=== PATIENT | female | born 1955 | race Caucasian/White ===

== ENCOUNTER → 2019-05-19 | Outpatient (REF) | payer BC ==
[~2019-05-19] MED LIST: AMBI10TA PO; INVO100T PO; LOSA50TA88 PO; METF10004 PO; NEXI20CA PO
[2019-05-19 13:40] LABS: APPEARANCE, URINE MANUAL CLOUDY (CLEAR); COLOR, URINE MANUAL ORANGE (YELLOW); PROTEIN, URINE MANUAL OBSCURED mg/dL (NEGATIVE)
[2019-05-19 13:41] LABS: BILIRUBIN, URINE MANUAL OBSCURED (NEGATIVE); BLOOD URINE MANUAL POSITIVE (NEGATIVE); GLUCOSE, URINE (UA) MANUAL 4+(1000 MG/DL) mg/dL (NEGATIVE); KETONE, URINE MANUAL OBSCURED mg/dL (NEGATIVE); LEUKOCYTE ESTERASE, URINE MAN OBSCURED (NEGATIVE); NITRITE, URINE MANUAL OBSCURED (NEGATIVE); UROBILINOGEN, URINE MANUAL OBSCURED mg/dl (NORMAL)
[2019-05-19 13:45] LABS: RBC, URINE TNTC /hpf (0-3); WBC, URINE 15-20 /hpf (0-3)
[2019-05-19 13:46] LABS: BACTERIA, URINE SMALL AMOUNT; HYALINE CAST, URINE NONE SEEN /lpf (0-1); SQUAMOUS EPITHELIAL CELL URINE SMALL AMOUNT /hpf (SMALL AMT)
== END ==
LOC: M SMT 13:26
PROVIDERS: ATTEND Nurse Practitioner Women's Health
DX: Z01.818 Encounter for other preprocedural examination (principal); N13.2 Hydronephrosis with renal and ureteral calculous obstruction

== ENCOUNTER 2019-05-22 07:42 | Day surgery (SDC) | payer BC ==
[~2019-05-22] VITALS: Ht 165.1 cm; Wt 94.3 kg
[~2019-05-22 07:42] MED LIST changes: +LR 1,000 ML IV SCH; +LevoFLOXacin IV 500 MG in IV 1 EA IV ONE
[2019-05-22 08:21] LABS: INR 1.07; PROTHROMBIN TIME 13.6 SECONDS (11.8-14.0)
[2019-05-22] MEDS ORDERED: MIDAZOLAM INJ 2 MG/2 ML VIAL (J2250) As Ordered ONE (08:25)
[2019-05-22] MEDS ORDERED: PROPOFOL 200 MG/20 ML VIAL As Ordered ONE (08:25)
[2019-05-22] MEDS ORDERED: LIDOCAINE 2% INJ 100 MG/5 ML SDV (FOR ANES.) As Ordered ONE (08:25)
[2019-05-22] MEDS ORDERED: ROCURONIUM BROMIDE 50 MG/5 ML VIAL As Ordered ONE (08:25)
[2019-05-22] MEDS ORDERED: fentaNYL 100 MCG/2 ML INJECTION (J3010) As Ordered ONE ×2 (08:25→10:39)
[2019-05-22] MEDS ORDERED: CONRAY-60 60% 50ML VIAL (Q9961) As Ordered ONE (09:14)
[2019-05-22] MEDS ORDERED: KETOROLAC 60 MG/2 ML VIAL (J1885) As Ordered ONE (09:44)
[2019-05-22] MEDS ORDERED: ONDANSETRON 4MG/2ML VIAL (J2405) As Ordered ONE (09:44)
[2019-05-22] MEDS ORDERED: dexameTHASONE 4 MG/ML 1ML VIAL (J1100) As Ordered ONE (09:44)
[2019-05-22] MEDS ORDERED: ACETAMINOPHEN 1000MG 100ML IV BTL (OFIRMEV) (J0131 PER 10MG) As Ordered ONE (10:10)
--- NOTE | 2019-05-22 11:17 | REP ---
Retrograde pyelogram: History: Stent placement. 45 seconds of fluoroscopy time is reported. Findings: A single spot radiograph of the abdomen documents double pigtail left ureteral stent placement. Electronically Signed by Randall Collins MD 05/22/2019 11:08 A
[2019-05-22] MEDS ORDERED: fentaNYL 100 MCG/2 ML INJECTION (J3010) IV PRN (11:30)
[2019-05-22] MEDS ORDERED: ONDANSETRON 4MG/2ML VIAL (J2405) IV PRN (11:30)
[2019-05-22] MEDS ORDERED: LR 1,000 ML IV SCH (11:30)
[2019-05-22] MEDS ORDERED: oxyBUTYnin 5 MG TAB PO PRN (12:00)
--- NOTE | 2019-05-22 13:45 | REP ---
KUB: Single view. History: Status post cystoscopy. Findings: Supine view of the abdomen demonstrates a left double pigtail ureteral stent in position. Bowel gas pattern is unremarkable. There are phleboliths in the pelvis. Impression: Double pigtail stent noted in place on the left. Electronically Signed by Randall Collins MD 05/22/2019 01:36 P
[2019-05-22 14:05] VITALS: BP 118/62
[2019-05-22] MEDS: PHENAZOPYRIDINE 100 MG TAB PO SCH ×2 (15:42→15:45)
[2019-05-22] MEDS ORDERED: PHEN-594 PO (16:13)
[2019-05-22] MEDS ORDERED: OXYB5TAB10 PO (16:16)
[2019-05-22] MEDS ORDERED: DOXY100C PO (16:21)
--- NOTE | 2019-05-22 19:16 | REP ---
CT abdomen and pelvis without IV or oral contrast: Renal stone protocol. History: Postop. Status post left ureteral stent placement. Comparison is made with today's KUB. No comparison CT study. CT findings: Digital preliminary glassware defect repairer radiograph shows a normal bowel gas pattern and the previously noted left ureteral stent. There is bilateral lower lobe plate-like atelectasis in the lung bases. No pleural effusion is seen. The liver is normal in size homogeneous in texture. There is a small accessory splenule. No other splenic abnormalities observed. There is a tiny focus of increased density in the dependent portion of the gallbladder consistent with a small gallstone. No abnormalities noted in the pancreas. There is mild fullness of the intrarenal collecting system of the right kidney and of the renal pelvis is seen to contain slightly increased attenuation material consistent with residual retrograde pyelogram contrast versus hematuria. There is a tiny cyst projecting laterally from the right kidney. On the left there is no evidence of hydronephrosis. A small quantity of procedural air is seen in the collecting system of the left kidney can adjacent to the pigtail catheter and in the upper pole. There is a 4 mm intrarenal calculus in the lower pole collecting system of the left kidney. There is a somewhat ill-defined low density area in the suprarenal soft tissues just below the adrenal gland measuring 2.6 cm in greatest diameter with some surrounding edema. This could be post procedural extrarenal hematoma or a small left adrenal adenoma. It has a negative mean Hounsfield unit density number of -11 Hounsfield units. This favors benign adrenal adenoma. The double pigtail ureteral stent appears in good position. No ureteral calculus is noted adjacent to the stent on the left. The distal loop of the stent is a in the urinary bladder. There is some increased attenuation in the bladder lumen consistent with residual pyelogram contrast versus hematuria. A small quantity of air is seen in the urinary bladder post instrumentation. No uterine or ovarian abnormality is seen. No free intraperitoneal air is observed. Small and large intestinal bowel loops are unremarkable. Impression: Status post left double pigtail ureteral stent in good position. Intrarenal calculus lower pole left kidney. Low density area along the undersurface of the left adrenal gland most likely reflecting a benign adrenal adenoma versus postprocedural edema. No other evidence of hematoma. A small gallstone is suspected. Bibasilar plate-like atelectasis in the lungs. Electronically Signed by Randall Collins MD 05/22/2019 08:04 P
--- NOTE | 2019-05-25 08:04 | RO ---
DATE OF PROCEDURE: 05/22/2019 PREPROCEDURE DIAGNOSIS: Left renal calculus. POSTPROCEDURE DIAGNOSIS: Left renal calculus. PROCEDURE: Cystoscopy with left retrograde pyelogram, ureteroscopy and stent insertion. SURGEON: Dr. Dieter Alan. BAND HEAD SAW OPERATOR: None ANESTHESIA: General. INDICATION FOR OPERATION: This is a 63-year-old white female who presented to an outside hospital with a left ureteral calculus causing severe pain and hydronephrosis. A ureteral stent was passed at an outside hospital and reportedly, the stone was backed up into the kidney during the process. She presented here today for ureteroscopic stone extraction. DESCRIPTION OF PROCEDURE: The patient was placed on the table in the supine position and given general anesthesia. She was then placed in a lithotomy position, prepped with Betadine pain and draped in an aseptic manner. Time out was then performed. A cystoscope was then inserted into the meatus and advanced under direct vision of a 30-degree lens to the bladder. The ureteral indwelling stent was grasped with the grasping forceps and brought out to the urethral meatus where a wire was passed through the lumen up to the renal pelvis. This catheter was then removed leaving the wire in place. A second guidewire was then passed after performing a retrograde pyelogram. It showed no ureteral defects. This wire was passed up to the renal pelvis and over this a tunnel dilator was passed. It was only passed up to the distal portion of the middle third of the ureter because the area was quite non-resilient. The flexible ureteroscope was then passed into the tunnel and the ureter was visualized. The entire proximal ureter was inflamed and showed signs of irritation and trauma presumably from the previous stone. There was a lot of clot formation in the area and several of these clots had to be extracted to proceed with scope insertion. The scope was eventually passed into the renal pelvis. Each individual milan was identified starting with the upper poles. This was added by the use of Conray injection. No stones could be identified. The lower pole calices were then attempted to be examined but, because of the severe angulation, the most inferior poles could not be reached despite great effort. It was therefore, decided to leave a stent and perform an extracorporal shock wave lithotripsy (ESWL) procedure since there was no way to reach the stone in its current position, if in deed, the stone was even there. The ureteroscope and tunnel were then removed visualizing the ureter the entire length of the way. As mentioned before, the proximal ureter was very irritated looking with evidence of bruising and inflammation. There was no stone identified and there were no ureteral injuries identified. The cystoscope was then back-loaded over the safety wire and a 5-Mosotho double J stent was successfully passed over this wire and curled well in the renal pelvis and in the bladder when the wire was removed. The bladder was then drained and the scope was removed. The patient was then awakened and sent to the recovery room in stable condition having tolerated the procedure well. BARBY
--- NOTE | 2019-05-25 08:07 | RO ---
DATE OF PROCEDURE: 05/22/2019 PREPROCEDURE DIAGNOSIS: Left renal calculus. POSTPROCEDURE DIAGNOSIS: No calculus found. PROCEDURE: Cystoscopy, left retrograde pyelogram, ureteroscopy, clot extraction and stent insertion. SURGEON: Dr. Dieter Alan MEDICAL TYPIST: ANESTHESIA: General. INDICATION FOR OPERATION: This is a 63-year-old white female who presented to an outside facility for severe left flank pain and found to have a proximal left ureteral calculus. She had a stent inserted and reported stone was pushed back up into the kidney. She was sent here for laser lithotripsy of the renal calculus. DESCRIPTION OF PROCEDURE: The patient anesthetized with general anesthesia after being placed on the table in a spine position. She was then placed in the lithotomy position, prepped with Betadine paint and draped in an aseptic manner. Time-out was then performed. A rigid uteroscope was then introduced into the meatus and advanced under direct vision of a 30 degree lens to the bladder. The bladder was irrigated because of a large staining from Pyridium. The left ureteral stent was then identified, grasped with forceps and brought up through the ureteral meatus where a wire guide was passed through the lumen up to the renal pelvis. The catheter was then removed leaving the safety wire in place. The cystoscope was then advanced along side the safety wire and a working wire was passed up to the renal pelvis. An access sheath was then passed over this channel and advanced up to the mid ureter. The ureter was noted to be not very flexible and did not dilate easily. The flexible ureteroscope was then advanced through the scope to the end of the access sheath. It was then advanced along a working wire to the renal pelvis. The proximal ureter was extremely irritated with numerous areas of inflammation, irritation and bruising. In the renal pelvis there were numerous clots which were extracted. Some clots also needed to be extracted from the ureter to gain access to the lumen. Once the renal pelvis was sufficiently irrigated the individual calyces were identified and examined. No stones could be encountered. Contrast was then injected to highlight all of the calyces and each one was individually examined being guided by fluoroscopy. In the lower pole of the kidney there were two calyces that could not be accessed because of lack of flexibility of the scope and it just could not be angled enough to evaluate those areas. The calyces were examined three times during the procedure and no stones could be identified. The scope was then removed along with the access sheath under direct vision. Two more clots were extracted from the ureter, but no stones were seen. The bladder was examined and no stones or clots were seen in the bladder. The cystoscope was then advanced over the safety wire and a 5 Cambodian double J stent was passed over this wire where it curled well in the renal pelvis and in the bladder when the wire was removed. The bladder was then drained, cystoscope was removed and the patient was awakened and was sent to recovery room in stable condition having tolerated the procedure well. The patient will need to have a KUB or CT scan to further identify the presence of a stone and if the stone is in the lower pole she may need extracorporeal shock wave lithotripsy (ESWL) treatment to take care of that stone since it cannot be accessed with the ureteroscope. BARBY
[2019-05-26] MEDS ORDERED: AMPI500C9 PO (12:44)
== END 2019-05-22 15:31 | disposition home or self-care (01) ==
LOC: M SDC 07:42
PROVIDERS: ATTEND Urology
DX: N20.0 Calculus of kidney (principal); E11.9 Type 2 diabetes mellitus without complications; I10 Essential (primary) hypertension; K21.9 Gastro-esophageal reflux disease without esophagitis; G43.909 Migraine, unspecified, not intractable, without status migrainosus; R60.0 Localized edema; R06.83 Snoring; F17.210 Nicotine dependence, cigarettes, uncomplicated; Z79.899 Other long term (current) drug therapy; Z79.84 Long term (current) use of oral hypoglycemic drugs; Z88.8 Allergy status to other drugs, medicaments and biological substances; Z88.2 Allergy status to sulfonamides; Z88.1 Allergy status to other antibiotic agents; Z91.018 Allergy to other foods
CPT/HCPCS: 36415; 52332; 74018; 74176; 74420; 85610; C1769; C1894; C2617; J0131; J1100; J1885; J1956; J2250; J2405; J3010; Q9961

== ENCOUNTER 2019-05-28 06:34 | Day surgery (SDC) | payer BC ==
[~2019-05-28] VITALS: Ht 165.1 cm; Wt 93.9 kg
[~2019-05-28 06:34] MED LIST changes: +AMPI500C9 PO; +DOXY100C PO; +LR 1,000 ML IV ONE; -LR 1,000 ML IV SCH; -LevoFLOXacin IV 500 MG in IV 1 EA IV ONE; +OXYB5TAB10 PO; +PHEN-594 PO
--- NOTE | 2019-05-28 07:59 | REP ---
KUB: Single view. History: Kidney stone. Comparison study: May 22, 2019. Findings: A double pigtail left ureteral stent is noted in place. There is a 4 mm calcific opacity superimposed on the lower pole of the left kidney. No ureteral stone is seen. Bowel gas pattern is normal. Impression: Calcific opacity superimposed on the lower pole of the left kidney. Electronically Signed by Randall Collins MD 05/28/2019 07:51 A
[2019-05-28] MEDS ORDERED: LIDOCAINE 2% INJ 100 MG/5 ML SDV (FOR ANES.) As Ordered ONE (08:25)
[2019-05-28] MEDS ORDERED: ONDANSETRON 4MG/2ML VIAL (J2405) As Ordered ONE ×2 (08:25→10:46)
[2019-05-28] MEDS ORDERED: fentaNYL 100 MCG/2 ML INJECTION (J3010) As Ordered ONE (08:26)
[2019-05-28] MEDS ORDERED: MIDAZOLAM INJ 2 MG/2 ML VIAL (J2250) As Ordered ONE ×2 (08:26→10:20)
[2019-05-28] MEDS ORDERED: LIDOCAINE 2% 5ML JELLY UROJET As Ordered ONE (10:05)
[2019-05-28] MEDS ORDERED: ceFAZolin 2 GM/D5W 50 ML IV BAG (J0690 PER 500MG) As Ordered ONE (10:14)
[2019-05-28] MEDS ORDERED: KETAMINE HCL 200 MG/20 ML VIAL As Ordered ONE (10:29)
[2019-05-28] MEDS ORDERED: ceFAZolin SOD 2 GM in IV 1 EA IV ONE (10:30)
[2019-05-28] MEDS ORDERED: PROPOFOL 200 MG/20 ML VIAL As Ordered ONE (10:46)
[2019-05-28] MEDS ORDERED: METOCLOPRAMIDE INJ 10MG/2ML VIAL (J2765) As Ordered ONE (10:53)
[2019-05-28] MEDS ORDERED: ONDANSETRON 4MG/2ML VIAL (J2405) IV PRN (11:30)
[2019-05-28] MEDS: MORPHINE 2 MG/ML 1ML VIAL (J2270) IV PRN ×3 (11:30→11:45)
[2019-05-28] MEDS ORDERED: fentaNYL 100 MCG/2 ML INJECTION (J3010) IV PRN (11:30)
[2019-05-28] MEDS ORDERED: LR 1,000 ML IV SCH (11:30)
[2019-05-28] MEDS ORDERED: MORPHINE 10 MG/ML 1ML VIAL (J2270) As Ordered ONE (11:31)
[2019-05-28] MEDS ORDERED: KETOROLAC 30 MG/ML VIAL (J1885) As Ordered ONE (11:38)
[2019-05-28] MEDS: oxyCODONE 5MG TAB PO PRN ×2 (11:41→12:11)
[2019-05-28] MEDS ORDERED: KETOROLAC 30 MG/ML VIAL (J1885) IV PRN (11:45)
[2019-05-28 13:05] VITALS: BP 161/72
--- NOTE | 2019-06-01 11:36 | RO ---
DATE OF PROCEDURE: 05/28/2019 PREPROCEDURE DIAGNOSIS: Left kidney stone. POSTPROCEDURE DIAGNOSIS: Left kidney stone. PROCEDURE: Left extracorporal shockwave lithotripsy, cystoscopy, removal of left ureteral stent. SURGEON: Dr. Carlos Farias. SPORTS MARKETING INTERNSHIP: None. ANESTHESIA: Monitored anesthesia care (MAC). OPERATIVE INDICATIONS: This is a 63-year-old female who underwent a left ureteroscopy last week for attempted treatment of a 4 mm lower pole left kidney stone. Due to the location of the stone, it could not be accessed with the ureteroscope. A stent was placed with the plan for her to followup for this procedure today. DESCRIPTION OF PROCEDURE: The patient was brought to the operating room and MAC anesthesia was administered. Prophylactic antibiotics infused. She was then placed in the supine position and then prepped and draped for a cystoscopy. At this point, a flexible cystoscope was inserted into the urethral meatus and advanced into the bladder. Once inside the bladder, the left ureteral stent was seen. The stent was then grasped and withdrawn from the left collecting system intact. At this point, the patient was positioned for a left-sided extracorporal shockwave lithotripsy. Fluoroscopy utilized to monitor stone position and fragmentation throughout the procedure. Shockwave lithotripsy was delivered to the left sided kidney stone ungated. There were no arrhythmias. Stone did appear to fragment well. After 2500 shocks, the procedure was concluded. The patient was then awakened from anesthesia and transported to the recovery room in stable condition. ESTIMATED BLOOD LOSS: 0 mL. COMPLICATIONS: None. SPECIMENS: None. PLAN: The patient will followup in the clinic in a few weeks with imaging prior to assess for residual stone burden.
== END 2019-05-28 13:20 | disposition home or self-care (01) ==
LOC: M SDC 06:34
PROVIDERS: ATTEND Urology
DX: N20.0 Calculus of kidney (principal); E11.9 Type 2 diabetes mellitus without complications; I10 Essential (primary) hypertension; K21.9 Gastro-esophageal reflux disease without esophagitis; G43.909 Migraine, unspecified, not intractable, without status migrainosus; J30.9 Allergic rhinitis, unspecified; Z79.899 Other long term (current) drug therapy; Z79.84 Long term (current) use of oral hypoglycemic drugs; Z79.2 Long term (current) use of antibiotics; Z87.891 Personal history of nicotine dependence; Z88.8 Allergy status to other drugs, medicaments and biological substances; Z88.2 Allergy status to sulfonamides; Z88.1 Allergy status to other antibiotic agents; Z91.018 Allergy to other foods
CPT/HCPCS: 50590; 74018; J0690; J1885; J2250; J2270; J2405; J2765; J3010

== ENCOUNTER → 2019-06-19 | Outpatient (REF) | payer BC ==
[~2019-06-19] MED LIST changes: -LR 1,000 ML IV ONE
== END ==
LOC: M SMT 13:17
PROVIDERS: ATTEND Nurse Practitioner Family
DX: N20.0 Calculus of kidney (principal)

== ENCOUNTER 2023-04-26 18:41 | Inpatient (IN) | payer BC ==
[~2023-04-26] VITALS: Ht 165.1 cm; Wt 87.1 kg
[~2023-04-26 18:41] MED LIST changes: -DOXY100C PO; +DOXY100C3 PO; +LOSA50TA28 PO; -LOSA50TA88 PO; -OXYB5TAB10 PO; +OXYB5TAB11 PO; -PHEN-594 PO; +PHEN1TAB74 PO
[2023-04-26] MEDS ORDERED: KETOROLAC 30 MG/ML 1ML VIAL IV ONE (19:50)
[2023-04-26] MEDS: MORPHINE 4 MG/ML 1ML VIAL IV PRN ×4 (20:22→21:35)
[2023-04-26 20:28] LABS: BASO # 0.1 10^3/uL (0.0-0.2); BASO % 0.9 % (0.0-1.0); EOS # 0.1 10^3/uL (0.0-0.5); EOS % 1.1 % (0.0-3.0); HEMATOCRIT 39.8 % (36.0-47.0); HEMOGLOBIN 12.8 g/dl (12.0-15.5); LYMPH % 35.9 % (24.0-44.0); MEAN CORPUSCULAR HEMOGLOBIN 25.3 pg (27.0-33.0); MEAN CORPUSCULAR HGB CONC 32.2 g/dl (32.0-36.5); MEAN CORPUSCULAR VOLUME 78.8 fl (80.0-96.0); MONO # 0.6 10^3/uL (0.0-0.8); NEUTROPHILS # 4.6 10^3/uL (1.5-8.5); NEUTROPHILS % 54.9 % (36.0-66.0); PLATELET COUNT, AUTOMATED 254 10^3/uL (150-450); RED BLOOD COUNT 5.05 10^6/uL (4.00-5.40); WHITE BLOOD COUNT 8.5 10^3/uL (4.0-10.0)
[2023-04-26 20:52] LABS: LIPASE 25 U/L (12-53)
[2023-04-26 20:54] LABS: ALBUMIN 3.7 G/DL (3.2-5.2); ALKALINE PHOSPHATASE 78 U/L (46-116); ALT/SGPT 16 U/L (7.0-40); AST/SGOT 16 U/L (<34); BILIRUBIN,DIRECT 0.1 MG/DL (<0.4); BILIRUBIN,TOTAL 0.4 MG/DL (0.3-1.2); BLOOD UREA NITROGEN 13 MG/DL (9-23); CALCIUM LEVEL 8.7 MG/DL (8.3-10.6); CARBON DIOXIDE LEVEL 23 MMOL/L (20-31); CHLORIDE LEVEL 109 MMOL/L (98-107); GLOMERULAR FILTRATION RATE > 60.0 (>45); GLUCOSE, FASTING 120 MG/DL (74-106); SODIUM LEVEL 142 MMOL/L (136-145); TOTAL PROTEIN 6.4 G/DL (5.7-8.2)
[2023-04-26] MEDS: TAMSULOSIN 0.4 MG CAP PO SCH ×2 (21:00→23:15)
[2023-04-26] MEDS ORDERED: cefTRIAXone SOD 1 GM in D5W MINI-BAG PLUS 50 ML IV ONE (21:35)
[2023-04-26] MEDS ORDERED: MED REC IN PROGRESS XX SCH (21:45)
[2023-04-26 21:47] LABS: RSV AMPLIFICATION NEGATIVE (NEGATIVE)
[2023-04-26] MEDS ORDERED: PHEN37.58 PO (21:54)
[2023-04-26] MEDS ORDERED: OXYB-54 PO (21:54)
[2023-04-26] MEDS ORDERED: VENL75CA47 PO (21:57)
[2023-04-26] MEDS ORDERED: VICT18IN2 INJ (21:57)
[2023-04-26] MEDS ORDERED: INVO300T PO (21:57)
[2023-04-26] MEDS ORDERED: HOME MED LIST COMPLETE! XX SCH (22:00)
[2023-04-26] MEDS ORDERED: DEXTROSE 50% 50ML SYRINGE IV PRN (22:55)
[2023-04-26] MEDS ORDERED: KETOROLAC 30 MG/ML 1ML VIAL IV PRN (22:55)
[2023-04-26] MEDS ORDERED: SENOKOT S TAB PO PRN (22:55)
[2023-04-26] MEDS ORDERED: GLUCAGON INJ 1MG VIAL SC PRN (22:55)
[2023-04-26] MEDS ORDERED: ONDANSETRON 4MG 2ML VIAL IV PRN (22:55)
[2023-04-26] MEDS ORDERED: NS 1,000 ML IV SCH (22:55)
[2023-04-26] MEDS ORDERED: GLUCOSE 4GM CHEW TABLET PO PRN (22:55)
[2023-04-26] MEDS: PERCOCET 5MG/325MG TAB PO PRN (23:15)
[2023-04-27 00:28] VITALS: BP 156/89; TEMP 97.3; O2SAT 100
[2023-04-27] MEDS ORDERED: amLODIPine 5 MG TAB PO ONE (01:00)
[2023-04-27 01:15] VITALS: BP 156/89
[2023-04-27] MEDS ORDERED: LOSARTAN 50MG TABLET PO ONE (02:00)
[2023-04-27] MEDS ORDERED: KETOROLAC 30 MG/ML 1ML VIAL IV PRN (02:00)
[2023-04-27] MEDS: INSULIN LISPRO (NovoLOG) PER UNIT SC SCH ×2 (06:00)
[2023-04-27 06:20] VITALS: TEMP 97.3
[2023-04-27] MEDS: PERCOCET 5MG/325MG TAB PO PRN (06:26)
[2023-04-27] MEDS ORDERED: HYDROMORPHONE HCL 0.5 MG/ 0.5 ML SYRINGE IV PRN ×2 (08:00)
[2023-04-27] MEDS ORDERED: MORPHINE 4 MG/ML 1ML VIAL IV PRN (08:05)
[2023-04-27] MEDS ORDERED: MORPHINE 2 MG/ML 1ML VIAL IV PRN (08:05)
[2023-04-27] MEDS ORDERED: DOCUSATE SODIUM 100MG CAPSULE PO SCH (09:00)
[2023-04-27] MEDS ORDERED: KETOROLAC 30 MG/ML 1ML VIAL IV ONE ×2 (09:35→10:00)
[2023-04-27] MEDS ORDERED: OXYC1TAB23 PO (12:17)
[2023-04-27] MEDS ORDERED: RAPA4CAP PO (12:17)
[2023-04-27] MEDS ORDERED: ONDA4TAB6 PO (12:17)
[2023-04-27] MEDS ORDERED: amLODIPine 5 MG TAB PO SCH (13:00)
[2023-04-27] MEDS ORDERED: KETOROLAC 30 MG/ML 1ML VIAL IV SCH (14:00)
[2023-04-27] MEDS ORDERED: cefTRIAXone SOD 1 GM in D5W MINI-BAG PLUS 50 ML IV SCH (23:00)
[2023-04-28] MEDS ORDERED: amLODIPine 5 MG TAB PO SCH (06:00)
[2023-04-28] MEDS ORDERED: LOSARTAN 50MG TABLET PO SCH (06:00)
== END 2023-04-27 12:35 | disposition home or self-care (01) | DRG 465 ==
LOC: M ED 18:41 → M ED INP 22:54 → ENRESERV 23:54 → M MS5PR 04-27 00:29
PROVIDERS: ADMIT Internal Medicine; ATTEND Student in an Organized Health Care Education/Training Program
DX: N20.1 Calculus of ureter (principal); N13.30 Unspecified hydronephrosis; I10 Essential (primary) hypertension; E11.9 Type 2 diabetes mellitus without complications; F17.210 Nicotine dependence, cigarettes, uncomplicated; F32.A Depression, unspecified; K21.9 Gastro-esophageal reflux disease without esophagitis; Z79.84 Long term (current) use of oral hypoglycemic drugs; Z79.899 Other long term (current) drug therapy; Z88.1 Allergy status to other antibiotic agents; Z88.2 Allergy status to sulfonamides; Z88.8 Allergy status to other drugs, medicaments and biological substances; Z91.018 Allergy to other foods